=== PATIENT | male | born 1965 | race Caucasian/White ===

== ENCOUNTER → 2016-08-22 | Outpatient (CLI) | payer BC | LOC: GMAB 10:21 | PROVIDERS: ATTEND Family Medicine | DX: Z00.00 Encounter for general adult medical examination without abnormal findings (principal) ==

== ENCOUNTER → 2019-08-19 | Outpatient (CLI) | payer BC | LOC: GMAE 10:45 | PROVIDERS: ATTEND Family Medicine | DX: Z00.00 Encounter for general adult medical examination without abnormal findings (principal) ==

== ENCOUNTER 2019-11-03 10:00 | Emergency (ER) | payer BC ==
[2019-11-03] MEDS ORDERED: KETOROLAC TROMETHAMINE INJ 30 MG/ML VIAL IV ONE (10:08)
--- NOTE | 2019-11-03 10:12 | ED.PDOC ---
History of Present Illness - General Stated Complaint: Right flank pain Time Seen by Provider: 11/03/19 10:06 Additional Information: patient with history of hypertension and hyperlypidemia that presents to the ER with right flank pain symptoms began last night patient denies dysuria, hematuria, and no urinary symptoms paitent has no history of kidney stone no travels and no abdominal surgeries patient describes the pain as a 6/10 patient does not appear toxic - History of Present Illness Abdominal Pain Onset Location: flank Pain Radiation: epigastric Quality: moderate Timing/Duration: other - last night Improving Factors: nothing Worsening Factors: nothing Associated Symptoms: denies symptoms Review of Systems - Review of Systems Constitutional: States: no symptoms reported EENTM: States: no symptoms reported Respiratory: States: no symptoms reported Cardiology: States: no symptoms reported Gastrointestinal/Abdominal: States: abdominal pain Genitourinary: States: no symptoms reported Musculoskeletal: States: no symptoms reported Skin: States: no symptoms reported Endocrine: States: no symptoms reported Hematologic/Lymphatic: States: no symptoms reported Past Medical History (General) - Patient Medical History Hx Congestive Heart Failure: No Hx Hypertension: Yes Hx Diabetes: No - Vaccination History Hx Tetanus, Diphtheria Vaccination: No Hx Influenza Vaccination: No - Social History Hx Tobacco Use: Yes Family Medical History - Family History Father Family History: Unknown Physical Exam - Physical Exam General Appearance: Alert, Anxious, Comfortable, Well Developed, Well Groomed, Well Hydrated, Well Nourished Eyes, Ears, Nose, Throat Exam: PERRL/EOMI, normal ENT inspection Neck: non-tender, full range of motion, supple Respiratory: chest non-tender, lungs clear, normal breath sounds, no respiratory distress, no accessory muscle use Cardiovascular/Chest: normal peripheral pulses, regular rate, rhythm, no edema, no gallop, no JVD, no murmur Gastrointestinal/Abdominal: other - right flank pain, no rebound, no guarding, no acute abdomen Back Exam: CVA tenderness (R) Extremity: normal range of motion, non-tender, normal inspection, no pedal edema Neurologic: ambulatory analyst II-XII nml as tested, no motor/sensory deficits, alert, normal mood/affect, oriented x 3 Skin Exam: normal color Lymphatic: no adenopathy Progress - Progress Progress: 11/03/19 11:29 this is a patient that presents with right flank pain, patient doest appear toxic and in no distress. I suspected a kidney stone even though patient has no history of kidney stones patient did not have right lower quadrant pain and no acute abdomen CT report 2 stones in the distal right ureter measuring 3.8 and 2.5 mm, not in the UVJ, with mild hydroureter, more distal than proximal and distal periureteral edema. Mild right hydronephrosis with no stones in the kidney, but pararenal stranding. Left side urinary tract is negative patient does not appear toxic will be discharge home with pain medications, zofran and instructions to return to the er if fever, nausea, vomiting, bloody urine worsening pain or any other concerns 11/03/19 11:34 Departure - Departure Clinical Impression: Kidney stone on right side Disposition: Discharge to Home or Self Care Condition: Fair Instructions: DI for Kidney Stones Diet: other - lot fluid at home Referrals: EMILIA ROSALES MD [Primary Care Provider] - 1-2 Weeks Prescriptions: Ondansetron Odt [Zofran ODT] 4 mg PO Q6HRS #20 tab Home Medications: Ambulatory Orders Fenofibrate [Tricor] 145 mg PO DAILY 05/20/15 Metoprolol Succinate [Metoprolol Succinate ER] 50 mg PO DAILY 05/20/15 Simvastatin [Zocor] 40 mg PO DAILY 05/20/15 Sulfa/Trimeth 800/160 (Ds) Tab [Bactrim DS Tab] 1 ea PO DAILY #7 tab 05/20/15 Atorvastatin Calcium [Lipitor] 40 mg PO DAILY 11/19/15 Losartan Potassium [Cozaar] 100 mg PO DAILY 11/19/15 Ondansetron Odt [Zofran ODT] 4 mg PO Q6HRS #20 tab 11/03/19 Additional Instructions: return to the ER if fever, nausea, vomiting, bloody urine worsening pain or any other concerns
--- NOTE | 2019-11-03 11:25 | CT ---
EXAM DESCRIPTION: Abdoment/Pelvis w/o Contrast: Computed Tomography. CLINICAL HISTORY: right flank pain COMPARISON: None. TECHNIQUE: Spiral-axial scans at 5.0 x 5.0 mm intervals through the abdomen and pelvis. Coronal and sagittal 2.0 mm reconstructions. No IV or oral contrast. Total Exam DLP: 1385 mGy-cm. This exam was performed according to our departmental CT dose-optimization program which includes automated exposure control, adjustment of the mA and/or kV according to patient size and/or use of iterative reconstruction technique; to reduce radiation dose to as low as reasonably achievable (ALARA). FINDINGS: Kidneys and Ureters: Mild right hydronephrosis and perirenal fatty stranding. Mild dilation of right renal pelvis and ureter. 2 radiodense stones in the distal right ureter which is more dilated with periureteral edema. Distal right ureteral stone which is 1 cm proximal to more distal stone measures 2.5 mm and the more distal stone measures 3.8 x 3.5 mm just proximal to the UVJ. No radiodense stones in the right kidney. No radiodense stones, hydronephrosis, or hydroureter on the left. Physiologic stranding in the left pararenal space. Pelvic Organs: No radiodense stones in the urinary bladder. No free fluid. Seminal vesicles and prostate gland are unremarkable. Lung and pleura bases: Bilateral pleural thickening versus small effusions. Liver, spleen, stomach, and adrenal glands: Stomach and other solid organs are negative. Pancreas, Gallbladder, Ducts: Unremarkable. Aorta: Minimal atherosclerotic calcification with normal outer caliber. Small Bowel: Negative. Terminal Ileum/Cecum: Normal caliber including the appendix. No inflammatory changes. Colon: Decompressed with minimal gas and trace amount of fecal matter. Mesentery: Other than pararenal stranding, unremarkable. Spine and Bony Pelvis: Bulging posterior L5-S1 disc with canal narrowing and grade 1 anterolisthesis. Bilateral L5 pars spondylolysis. Bilateral moderate to severe foraminal narrowing. Endplate spurring in the thoracic spine. Abdominal Wall/Back Soft Tissues: Negative. IMPRESSION: 1. 2 stones in the distal right ureter measuring 3.8 and 2.5 mm, not in the UVJ, with mild hydroureter, more distal than proximal and distal periureteral edema. Mild right hydronephrosis with no stones in the kidney, but pararenal stranding. Left side urinary tract is negative. 2. 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 Disc desiccation and bulging. Bilateral severe foraminal narrowing. Correlate for bilateral L5 radiculopathy. Consider orthopedic/spine surgical consult. Electronically signed by: Santi Atkins MD 11/03/2019 11:24 AM CDT
[2019-11-03 11:53] VITALS: BP 129/77; TEMP 97.2; O2SAT 96
== END 2019-11-03 11:52 | disposition home or self-care (01) ==
LOC: ER 10:00
DX: N13.2 Hydronephrosis with renal and ureteral calculous obstruction (principal); I10 Essential (primary) hypertension; E78.5 Hyperlipidemia, unspecified; Z87.891 Personal history of nicotine dependence; Z79.899 Other long term (current) drug therapy
CPT/HCPCS: 36415; 74176; 80053; 81001; 83690; 85025; J1885